=== PATIENT | female | born 1990 | race Two or more races ===

== ENCOUNTER 2022-01-05 21:56 | Emergency (ER) | payer OTHER ==
[~2022-01-05] VITALS: Ht 165.1 cm; Wt 52.0 kg
[2022-01-05 23:25] VITALS: BP 115/81
[2022-01-06 04:04] LABS: Hepatitis B Surface Antibody Positive (Negative)
== END 2022-01-06 05:57 | disposition home or self-care (01) ==
LOC: EEVIPCON 21:56 → ER 21:56
DX: S60.411A Abrasion of left index finger, initial encounter (principal); Z88.0 Allergy status to penicillin; Z88.2 Allergy status to sulfonamides; Z90.49 Acquired absence of other specified parts of digestive tract; W46.0XXA Contact with hypodermic needle, initial encounter; Y93.89 Activity, other specified; Y92.89 Other specified places as the place of occurrence of the external cause; Y99.8 Other external cause status
CPT/HCPCS: 36415; 86703; 86706; 86803; 87340

== ENCOUNTER → 2022-02-03 | Emergency (ER) | payer OTHER ==
[~2022-02-03] VITALS: Ht 157.5 cm; Wt 53.6 kg
[~2022-02-03] MED LIST: AZIT250T9 PO; AZITHROMYCIN 250 MG TAB PO ONE; DexAMETHasone SOD PHOS 10MG/1ML VIAL INJ IM ONE; HYDR-4902 PO; HYDROcodone-ACET 10/325MG TAB PO ONE; OSEL75CA5 PO; OSELTAMIVIR 75 MG CAP PO ONE; PRED20TA2 PO
[2022-02-03 03:22] VITALS: BP 135/89
== END | disposition home or self-care (01) ==
LOC: ER 03:15 → EEVIPCON 03:15
DX: J06.9 Acute upper respiratory infection, unspecified (principal); Z88.0 Allergy status to penicillin; Z88.2 Allergy status to sulfonamides; Z90.49 Acquired absence of other specified parts of digestive tract
CPT/HCPCS: 96372; 99284; J1100

== ENCOUNTER 2022-02-11 23:49 | Emergency (ER) | payer BC, OTHER ==
[~2022-02-11] VITALS: Ht 165.1 cm; Wt 52.0 kg
[~2022-02-11 23:49] MED LIST changes: -AZITHROMYCIN 250 MG TAB PO ONE; -DexAMETHasone SOD PHOS 10MG/1ML VIAL INJ IM ONE; -HYDROcodone-ACET 10/325MG TAB PO ONE; -OSELTAMIVIR 75 MG CAP PO ONE
[2022-02-12] MEDS ORDERED: SODIUM CHLORIDE 0.9% 1,000 ML IV ONE (00:45)
[2022-02-12] MEDS ORDERED: KETOROLAC TROMETH 30 MG/ML 1ML VIAL IV ONE (00:45)
[2022-02-12] MEDS ORDERED: IBUPROFEN 600 MG TAB PO ONE (00:45)
[2022-02-12 02:36] VITALS: BP 103/69
== END 2022-02-12 02:31 | disposition home or self-care (01) ==
LOC: EEVIPCON 23:49 → ER 23:49
DX: U07.1 COVID-19 (principal); M79.10 Myalgia, unspecified site; Z90.49 Acquired absence of other specified parts of digestive tract
CPT/HCPCS: 96361; 96374; 99283; J1885; J7030

== ENCOUNTER 2022-04-06 07:00 | Emergency (ER) | payer BC ==
[~2022-04-06] VITALS: Ht 165.1 cm; Wt 52.2 kg
[2022-04-06] MEDS ORDERED: cefTRIAXone SOD 1,000 MG VL IM ONE (07:15)
[2022-04-06] MEDS ORDERED: HYDROcodone-ACET 5/325MG TAB PO ONE (07:15)
[2022-04-06] MEDS ORDERED: CLIN300C8 PO (07:27)
[2022-04-06] MEDS ORDERED: TRAM-297 PO (07:27)
[2022-04-06 08:11] VITALS: BP 144/91
== END 2022-04-06 07:31 | disposition home or self-care (01) ==
LOC: ER 07:00
DX: K04.7 Periapical abscess without sinus (principal); Z88.0 Allergy status to penicillin; Z88.2 Allergy status to sulfonamides; Z79.899 Other long term (current) drug therapy; Z90.49 Acquired absence of other specified parts of digestive tract
CPT/HCPCS: 96372; 99283; J0696

== ENCOUNTER 2024-03-17 00:17 | Emergency (ER) | payer BC ==
[~2024-03-17] VITALS: Ht 162.6 cm; Wt 50.9 kg
[~2024-03-17 00:17] MED LIST changes: +AZIT-43 PO; -AZIT250T9 PO; +CLIN1CAP70 PO; +TRAM-297 PO
[2024-03-17] MEDS: SODIUM CHLORIDE 0.9% 1,000 ML IV ONE ×3 (00:45→04:45)
[2024-03-17] MEDS: ONDANSETRON HCL 4 MG/2 ML VIAL IV ONE ×3 (00:45→04:45)
[2024-03-17] MEDS: PANTOPRAZOLE 40 MG/10 ML VIAL INJ IV ONE (00:45)
[2024-03-17] MEDS: KETOROLAC TROMETH 30 MG/ML 1ML VIAL IV ONE (00:45)
--- NOTE | 2024-03-17 00:47 | ED.PDOC ---
History of Present Illness HPI Comments 33-year-old female with no PMHx presents with a chief complaint of abdominal discomfort, nausea, vomiting, and diarrhea x onset yesterday around 1600. Patient reports that her abdominal discomfort is localized diffusely, describes as cramping sensation. Patient mentions that she has been having frequent epis odes of vomiting, diarrhea, and nausea. Patient is not actively vomiting at this time. Patient is loja in color. Patient denies any hematemesis, hemoptysis, rectal bleeding, or trauma prior to onset of symptoms. No other symptoms or modifying factors present at this time. Chief Complaint: Nausea/Vomiting Time Seen by MD: 00:22 Primary Care Provider: CHELA Reviewed Notes: Medications, Allergies Allergies: Coded Allergies: Penicillins (Verified Allergy, Unknown, 01/05/22) Sulfa Antibiotics (Verified Allergy, Unknown, 01/05/22) Home Meds Active Scripts Tramadol Hcl (Ultram) 50 Mg Tab, 1 TAB PO TID, #21 TAB Prov:RINA DANIELS 04/06/22 Clindamycin Hcl (Clindamycin Hcl) 300 Mg Cap, 1 CAP PO TID, #30 CAP Prov:RINA DANIELS 04/06/22 Oseltamivir Phosphate (Tamiflu) 75 Mg Cap, 75 MG PO DAILY for 7 Days, #7 CAP Prov:MUNDO MAX MD 02/03/22 Hydrocodone-Acetaminophen (Hydrocodone Bitartrate/AC 5-325 mg) 1 Tab Tab, 1 TAB PO BID for 7 Days, #14 TAB Prov:MUNDO MAX MD 02/03/22 Prednisone (Prednisone) 20 Mg Tab, 20 MG PO TID for 4 Days, #12 MG Prov:MUNDO MAX MD 02/03/22 Azithromycin (Azithromycin) 250 Mg Tab, 250 MG PO DAILY, #6 TAB Prov:MUNDO MAX MD 02/03/22 Information Source: Patient Mode of Arrival: Ambulatory Severity: Moderate Timing: Days Duration: Since onset Prehospital treatment: None Past Medical History PAST MEDICAL HISTORY: Denies Surgical History: Cholecystectomy [employer]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 Family History Family History: Reviewed,noncontributory to illness Social History Smoker: Non-Smoker Alcohol: Denies ETOH Use Drugs: Denies Drug Use Lives In: Home Constitutional: denies: chills, diaphoresis, fatigue, fever, malaise, sweats, weakness, others EENTM: denies: blurred vision, double vision, ear bleeding, ear discharge, ear drainage, ear pain, ear ringing, eye pain, eye redness, hearing loss, mouth pain, mouth swelling, nasal discharge, nose bleeding, nose congestion, nose pain, photophobia, tearing, throat pain, throat swelling, voice changes, others Respiratory: denies: cough, hemoptysis, orthopnea, SOB at rest, shortness of breath, SOB with excertion, stridor, wheezing, others Cardiovascular: denies: chest pain, dizzy spells, diaphoresis, Dyspnea on exertion, edema, irregular heart beat, left arm pain, lightheadedness, palpitations, PND, syncope, others Gastrointestinal: reports: abdominal pain, diarrhea, nausea, vomiting; denies: abdomen distended, blood streaked bowels, constipated, dysphagia, difficulty swallowing, hematemesis, melena, poor appetite, poor fluid intake, rectal bleeding, rectal pain, others Genitourinary: denies: abnormal vagina bleeding, burning, dyspareunia, dysuria, flank pain, frequency, hematuria, incontinence, pain, , vagina discharge, urgency, others Neurological: denies: dizziness, fainting, headache, left sided numbness, left sided weakness, numbness, paresthesia, pre-existing deficit, right sided numbness, right sided weakness, seizure, speech problems, tingling, tremors, weakness, others Musculoskeletal: denies: back pain, gout, joint pain, joint swelling, muscle pain, muscle stiffness, neck pain, others Integumetry: denies: bruises, change in color, change in hair/nails, dryness, laceration, lesions, lumps, rash, wounds, others Allergic/Immunocompromised: denies: Difficulty Healing, Frequent Infections, Hives, Itching, others Hematologic/Lymphatic: denies: anemia, blood clots, easy bleeding, easy bruising, swollen glands, others Endocrine: denies: excessive hunger, excessive sweating, excessive thirst, excessive urination, flushing, intolerance to cold, intolerance to heat, unexplained weight gain, unexplained weight loss, others Psychiatric: denies: anxiety, bipolar disorder, depression, hopeless, panic disorder, schizophrenia, sleepless, suicidal, others All Other Systems: Reviewed and Negative Physical Exam General Appearance: Mild Distress, Thin HEENT: Normal ENT Inspection, Pharynx Normal, TMs Normal Neck: Full Range of Motion, Non-Tender, Normal, Normal Inspection Respiratory: Chest Non-Tender, Lungs Clear, No Accessory Muscle Use, No Respiratory Distress, Normal Breath Sounds Cardiovascular: No Edema, No JVD, No Murmur, No Gallop, Normal Peripheral Pulses, Regular Rate/Rhythm Breast Exam: Deferred Gastrointestinal: No Organomegaly, Non Tender, No Pulsatile Mass, Normal Bowel Sounds, Soft Genitalia: Deferred Pelvic: Deferred Rectal: Deferred Extremities: No calf tenderness, Normal capillary refill, Normal inspection, Normal range of motion, Non-tender, No pedal edema Musculoskeletal : Apperance: Normal Neurologic: Alert, communications senior associate II-XII nml as Tested, No Motor Deficits, Normal Affect, Normal Mood, No Sensory Deficits Cerebellar Function: Normal Reflexes: Normal Skin: Dry, Normal Color, Warm Lymphatic: No Adenopathy Was a procedure done? Was a procedure done?: No Differential Dx Considerations may include: Viral syndrome, gastroenteritis X-Ray, Labs, Meds, VS Vital Signs Date Time Temp Pulse Resp B/P (MAP) Pulse Ox O2 Delivery O2 Flow Rate FiO2 03/17/24 02:55 54 15 111/65 (80) 100 03/17/24 00:55 97.4 57 15 108/66 (80) 100 97.4 03/17/24 00:17 97.4 79 19 121/84 (96) 100 Lab Test 03/17/24 00:38 03/17/24 00:30 Range/Units Influenza Type A Antigen Negative Negative Influenza Type B Antigen Negative Negative SARS-CoV-2 Antigen (Rapid) Negative NEGATIVE White Blood Count 4.4 4.4-10.8 10^3/uL Red Blood Count 3.76 L 4.0-5.20 10^6/uL Hemoglobin 12.1 L 12.2-16.2 g/dL Hematocrit 35.7 L 36.0-46.0 % Mean Corpuscular Volume 95.1 80.0-100.0 fL Mean Corpuscular Hemoglobin 32.3 H 28.0-32.0 pg Mean Corpuscular Hemoglobin Concent 34.0 32.0-36.0 g/dL Red Cell Distribution Width 12.7 11.8-14.3 % Platelet Count 116 L 140-450 10^3/uL Mean Platelet Volume 11.9 H 6.9-10.8 fL Neutrophils (%) (Auto) 48.4 37.0-80.0 % Lymphocytes (%) (Auto) 35.5 10.0-50.0 % Monocytes (%) (Auto) 14.4 H 0.0-12.0 % Eosinophils (%) (Auto) 1.3 0.0-7.0 % Basophils (%) (Auto) 0.4 0.0-2.0 % Neutrophils # (Auto) 2.1 1.6-8.6 10 ^3/uL Lymphocytes # (Auto) 1.5 0.4-5.4 10 ^3/uL Monocytes # (Auto) 0.6 0-1.3 10 ^3/uL Eosinophils # (Auto) 0.1 0-0.8 10 ^3/uL Basophils # (Auto) 0 0-0.2 10 ^3/uL Nucleated Red Blood Cells 0.0 % Platelet Estimate Decreased Large Platelets Few Giant Platelets Few Sodium Level 142 136-145 mmol/L Potassium Level 3.4 L 3.5-5.1 mmol/L Chloride Level 111 H 98-107 mmol/L Carbon Dioxide Level 24 20-31 mmol/L Anion Gap 7 5-15 Blood Urea Nitrogen 7 L 9-23 mg/dL Creatinine 0.54 L 0.550-1.02 mg/dL Glomerular Filtration Rate Calc 123 >90 mL/min BUN/Creatinine Ratio 13.0 10.0-20.0 Serum Glucose 80 74-106 mg/dL Calcium Level 9.1 8.7-10.4 mg/dL Total Bilirubin 1.0 0.2-1.0 mg/dL Aspartate Amino Transferase (AST) 17 13-40 U/L Alanine Aminotransferase (ALT) 24 7-40 U/L Alkaline Phosphatase 41 L 46-116 U/L Total Protein 6.4 5.7-8.2 g/dL Albumin 4.2 3.2-4.8 g/dL Current Medications Medications (Trade) Dose Ordered Sig/Magdalena Route Start Time Stop Time Status Last Admin Sodium Chloride 1,000 ml @ 1,000 mls/hr Q1H ONCE IV 03/17/24 00:30 03/17/24 01:29 DC 03/17/24 00:45 Ondansetron HCl (Zofran) 4 mg ONCE ONCE IV 03/17/24 00:30 03/17/24 00:31 DC 03/17/24 00:45 Ketorolac Tromethamine (Toradol Injection) 15 mg ONCE ONCE IV 03/17/24 00:30 03/17/24 00:31 DC 03/17/24 00:45 Pantoprazole Sodium (Protonix) 40 mg ONCE ONCE IV 03/17/24 00:30 03/17/24 00:31 OK 03/17/24 00:45 Sodium Chloride 1,000 ml @ 1,000 mls/hr Q1H ONCE IV 03/17/24 02:15 03/17/24 03:14 DC 03/17/24 02:20 Famotidine (Pepcid Injection) 20 mg ONCE ONCE IV 03/17/24 03:00 03/17/24 03:01 OK 03/17/24 03:20 Ondansetron HCl (Zofran) 4 mg ONCE ONCE IV 03/17/24 03:00 03/17/24 03:01 OK 03/17/24 03:21 Acetaminophen (Ofirmev) 1,000 mg DAILY STAT IV 03/17/24 02:51 03/17/24 02:52 OK 03/17/24 03:19 Loperamide HCl (Imodium Capsule) 4 mg ONCE ONCE PO 03/17/24 04:00 03/17/24 04:01 OK 03/17/24 04:17 Sodium Chloride 1,000 ml @ 1,000 mls/hr Q1H ONCE IV 03/17/24 04:45 03/17/24 05:44 OK 03/17/24 04:45 Metoclopramide HCl (Reglan Injection) 10 mg ONCE ONCE IV 03/17/24 05:00 03/17/24 05:01 OK 03/17/24 05:21 Time of 1ST Reevaluation: 00:52 Reevaluation 1ST: Unchanged Patient Education/Counseling: Diagnosis, Treatment, Prognosis Family Education/Counseling: No Family Present Departure 1 Departure Time of Disposition: 06:43 (Patient with gastroenteritis presents tolerating p.o.. We will discharge patient with outpatient follow up) Impression: Primary Impression: Acute gastroenteritis Disposition: 01 HOME / SELF CARE / HOMELESS Condition: Stable Additional Instructions: You likely have gastroenteritis. It is important to stay well hydrated and well rested. This usually resolves within 1 week. If your symptoms worsen or you have any other concerns please return to the ER. e-Prescriptions Metoclopramide Hcl (Reglan) 10 Mg Tab 10 MG PO TID PRN for 4 Days, #12 TAB Prov: DIANN JARAMILLO MD 03/17/24 Ondansetron Odt 4MG Tab (ZOFRAN PO) 4 Mg Tb 4 MG PO QID PRN for 5 Days, #20 TAB ODT TAB-DISSOLVE IN MOUTH, THEN SWALLOW Prov: DIANN JARAMILLO MD 03/17/24 Discharged With: Self Critical Care Note Critical Care Time?: No Stability Stability form required: No I personally scribed for DIANN JARAMILLO MD ([email or web address]) on 03/17/24 at 00:47. Electronically submitted by Clovis Hernandez ([email or web address]). DIANN JARAMILLO MD Mar 17, 2024 00:47
[2024-03-17 00:55] VITALS: PULSE 57; RESP 16; TEMP 97.4; O2SAT 100
[2024-03-17 01:12] LABS: Alanine Aminotransferase 24 U/L (7-40); Albumin 4.2 g/dL (3.2-4.8); Anion Gap 7 (5-15); Aspartate Aminotransferase 17 U/L (13-40); Calcium 9.1 mg/dL (8.7-10.4); Carbon Dioxide 24 mmol/L (20-31); Glucose 80 mg/dL (74-106); Sodium 142 mmol/L (136-145)
[2024-03-17 01:13] LABS: Basophils # (auto) 0 10 ^3/uL (0-0.2); Basophils % (auto) 0.4 % (0.0-2.0); Eosinophils # (auto) 0.1 10 ^3/uL (0-0.8); Eosinophils % (auto) 1.3 % (0.0-7.0); Hematocrit 35.7 % (36.0-46.0); Hemoglobin 12.1 g/dL (12.2-16.2); Lymphocytes # (auto) 1.5 10 ^3/uL (0.4-5.4); Lymphocytes % (auto) 35.5 % (10.0-50.0); Mean Corpuscular Hemoglobin 32.3 pg (28.0-32.0); Mean Corpuscular Volume 95.1 fL (80.0-100.0); Monocytes # (auto) 0.6 10 ^3/uL (0-1.3); Monocytes % (auto) 14.4 % (0.0-12.0); Neutrophils # (auto) 2.1 10 ^3/uL (1.6-8.6); Neutrophils % (auto) 48.4 % (37.0-80.0); Platelet Count (auto) 116 10^3/uL (140-450); Red Blood Cells 3.76 10^6/uL (4.0-5.20); Red Cell Distribution Width 12.7 % (11.8-14.3); Total Protein 6.4 g/dL (5.7-8.2); White Blood Cell 4.4 10^3/uL (4.4-10.8)
[2024-03-17 01:14] LABS: COVID19 ANTIGEN SOFIA FIA NEGATIVE (NEGATIVE); Rapid Influenza A Negative (Negative); Rapid Influenza B Negative (Negative)
[2024-03-17 01:15] LABS: Alkaline Phosphatase 41 U/L (46-116); Blood Urea Nitrogen 7 mg/dL (9-23); Chloride 111 mmol/L (98-107); Potassium 3.4 mmol/L (3.5-5.1)
[2024-03-17 01:31] LABS: Giant Platelets Few; Large Platelets FEW; Platelet Estimate Decreased
[2024-03-17] MEDS: ACETAMINOPHEN IV 1000 MG/100ML (10MG/ML) IV STA (03:19)
[2024-03-17] MEDS: FAMOTIDINE (10MG/ML) 2ML VL IV ONE (03:20)
[2024-03-17] MEDS: LOPERAMIDE HCL 2 MG CAP/TAB PO ONE (04:17)
[2024-03-17] MEDS: METOCLOPRAMIDE HCL 5MG/ml INJ 2ml VIAL IV ONE (05:21)
[2024-03-17] MEDS ORDERED: METO-281 PO (06:45)
[2024-03-17] MEDS ORDERED: ZOFR4T PO (06:45)
[2024-03-17 06:50] VITALS: BP 110/70; PULSE 58; RESP 15; O2SAT 100
== END 2024-03-17 07:19 | disposition home or self-care (01) ==
LOC: ER 00:17
DX: K52.9 Noninfective gastroenteritis and colitis, unspecified (principal); Z88.0 Allergy status to penicillin; Z88.2 Allergy status to sulfonamides; Z79.899 Other long term (current) drug therapy; Z90.49 Acquired absence of other specified parts of digestive tract; Z20.822 Contact with and (suspected) exposure to COVID-19
CPT/HCPCS: 36415; 80053; 85025; 87426; 87804; 96361; 96374; 96375; 96376; 99285; J1885; J2405; J2470; J2765; J3490; J7030; J0131

== ENCOUNTER 2024-09-18 21:44 | Emergency (ER) | payer BC ==
[~2024-09-18] VITALS: Ht 165.1 cm; Wt 55.6 kg
[~2024-09-18 21:44] MED LIST changes: +ALPR0.5T PO; +METO-281 PO; +ZOFR4T PO
--- NOTE | 2024-09-18 21:52 | ED.PDOC ---
Musculoskeletal HPI Comments This is a 33 year old female presenting to the ED with chief complaint of right knee pain. Patient reports that she had been playing basketball with her friend yesterday when she accidentally bumped her right knee into their knee. Patient relays that she has continued to have pain since yesterday. Patient denies any numbness, weakness, tingling, fall, or further injury at this time. Vital signs were stable on arrival. Patient is able to ambulate with a limp. Chief Complaint: Lower Extremity Time Seen by MD: 21:50 Primary Care Provider: CHELA Reviewed Notes: Nurses Notes, Medications, Allergies Allergies: Coded Allergies: Penicillins (Verified Allergy, Unknown, 01/05/22) Sulfa Antibiotics (Verified Allergy, Unknown, 01/05/22) Home Meds Active Scripts Alprazolam (Xanax) 0.5 Mg Tb, 1 TAB PO BID PRN, #14 TAB Prov:TONY FRANKS 08/05/24 Metoclopramide Hcl (Reglan) 10 Mg Tab, 10 MG PO TID PRN for 4 Days, #12 TAB Prov:DIANN JARAMILLO MD 03/17/24 Ondansetron Odt 4MG Tab (ZOFRAN PO) 4 Mg Tb, 4 MG PO QID PRN for 5 Days, #20 TAB ODT TAB-DISSOLVE IN MOUTH, THEN SWALLOW Prov:DIANN JARAMILLO MD 03/17/24 Tramadol Hcl (Ultram) 50 Mg Tab, 1 TAB PO TID, #21 TAB Prov:RINA DANIELS 04/06/22 Clindamycin Hcl (Clindamycin Hcl) 300 Mg Cap, 1 CAP PO TID, #30 CAP Prov:RINA DANIELS 04/06/22 Oseltamivir Phosphate (Tamiflu) 75 Mg Cap, 75 MG PO DAILY for 7 Days, #7 CAP Prov:MUNDO MAX MD 02/03/22 Hydrocodone-Acetaminophen (Hydrocodone Bitartrate/AC 5-325 mg) 1 Tab Tab, 1 TAB PO BID for 7 Days, #14 TAB Prov:MUNDO MAX MD 02/03/22 Prednisone (Prednisone) 20 Mg Tab, 20 MG PO TID for 4 Days, #12 MG Prov:MUNDO MAX MD 02/03/22 Azithromycin (Azithromycin) 250 Mg Tab, 250 MG PO DAILY, #6 TAB Prov:MUNDO MAX MD 02/03/22 Information Source: Patient Mode of Arrival: Ambulatory Location: Right Extremity Location: Knee Timing: Hours Prehospital treatment: None Severity: Moderate Able to Move Extremity: Yes Bear Weight: Fully Pain: Moderate Mechanism: Blunt Trauma Circumstances: Sporting, Accident Onset of Symptoms: After Trauma Symptoms: Pain DVT Risk Factors: NONE Past Medical History PAST MEDICAL HISTORY: Denies Surgical History: 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 Family History Family History: Reviewed,noncontributory to illness Social History Smoker: Non-Smoker Alcohol: Denies ETOH Use Drugs: Denies Drug Use Lives In: Home Constitutional: denies: chills, diaphoresis, fatigue, fever, malaise, sweats, weakness, others EENTM: denies: blurred vision, double vision, ear bleeding, ear discharge, ear drainage, ear pain, ear ringing, eye pain, eye redness, hearing loss, mouth pain, mouth swelling, nasal discharge, nose bleeding, nose congestion, nose pain, photophobia, tearing, throat pain, throat swelling, voice changes, others Respiratory: denies: cough, hemoptysis, orthopnea, SOB at rest, shortness of breath, SOB with excertion, stridor, wheezing, others Cardiovascular: denies: chest pain, dizzy spells, diaphoresis, Dyspnea on exertion, edema, irregular heart beat, left arm pain, lightheadedness, palpitations, PND, syncope, others Gastrointestinal: denies: abdomen distended, abdominal pain, blood streaked bowels, constipated, diarrhea, dysphagia, difficulty swallowing, hematemesis, melena, nausea, poor appetite, poor fluid intake, rectal bleeding, rectal pain, vomiting, others Genitourinary: denies: abnormal vagina bleeding, burning, dyspareunia, dysuria, flank pain, frequency, hematuria, incontinence, pain, , vagina discharge, urgency, others Neurological: denies: dizziness, fainting, headache, left sided numbness, left sided weakness, numbness, paresthesia, pre-existing deficit, right sided numb ness, right sided weakness, seizure, speech problems, tingling, tremors, weakness, others Musculoskeletal: reports: others (Rt knee pain); denies: back pain, gout, joint pain, joint swelling, muscle pain, muscle stiffness, neck pain Integumetry: denies: bruises, change in color, change in hair/nails, dryness, laceration, lesions, lumps, rash, wounds, others Allergic/Immunocompromised: denies: Difficulty Healing, Frequent Infections, Hives, Itching, others Hematologic/Lymphatic: denies: anemia, blood clots, easy bleeding, easy bruising, swollen glands, others Endocrine: denies: excessive hunger, excessive sweating, excessive thirst, excessive urination, flushing, intolerance to cold, intolerance to heat, unexplained weight gain, unexplained weight loss, others Psychiatric: denies: anxiety, bipolar disorder, depression, hopeless, panic disorder, schizophrenia, sleepless, suicidal, others All Other Systems: Reviewed and Negative Physical Exam General Appearance: Moderate Distress (Due to right knee pain concerns.), Normal HEENT: Normal ENT Inspection, Pharynx Normal, TMs Normal Neck: Full Range of Motion, Non-Tender, Normal, Normal Inspection Respiratory: Chest Non-Tender, Lungs Clear, No Accessory Muscle Use, No Respiratory Distress, Normal Breath Sounds Cardiovascular: No Edema, No JVD, No Murmur, No Gallop, Normal Peripheral Pulses, Regular Rate/Rhythm Breast Exam: Deferred Gastrointestinal: No Organomegaly, Non Tender, No Pulsatile Mass, Normal Bowel Sounds, Soft Genitalia: Deferred Pelvic: Deferred Rectal: Deferred Extremities: Other (Mild edema noted throughout the anterior knee with exqui site tenderness to palpation over the tibial tuberosity. Significant reduced range of motion. No crepitus appreciated.) Neurologic: Alert, No Motor Deficits, Normal Affect, Normal Mood, No Sensory Deficits Cerebellar Function: Normal Reflexes: Normal Skin: Dry, Normal Color, Warm Lymphatic: No Adenopathy Was a procedure done? Was a procedure done?: No Differential Diagnosis EXT Differential Diagnosis: Sprain, Contusion, Strain X-Ray, Labs, Meds, VS Vital Signs Date Time Temp Pulse Resp B/P (MAP) Pulse Ox O2 Delivery O2 Flow Rate FiO2 09/18/24 21:48 98.3 72 12 127/71 (89) 99 98.3 X-Ray, Labs, Meds, VS Comment Advised patient that it appears she did not fracture her knee but rather, is experiencing neuropathic pain at the patella tendon. Advised patient utilize medication as needed for symptomatic pain relief as well as ice therapy. Time of 1ST Reevaluation: 22:13 Reevaluation 1ST: Improved Consultation: PCP Patient Education/Counseling: Diagnosis, Treatment Family Education/Counseling: Diagnosis, Treatment, No Family Present Sepsis Recent Procedure: No On Antibiotic Therapy: No Respiratory Rate >20: No Heart Rate >90: No Temp<36 C (96.8 F) or >38.3 C: No SBP <90 or MAP <65 mmHG: No New Acute Mental Status Change: No Is the patient on CPAP, BIPAP,: No IV fluid given: No Departure 1 Departure Time of Disposition: 22:13 Impression: Primary Impression: Knee contusion Disposition: HOME / SELF CARE / HOMELESS Condition: Stable Additional Instructions: Advised pain medication as needed for symptomatic relief as well as ice therapy. e-Prescriptions Hydrocodone-Acetaminophen (Hydrocodone Bitartrate/AC 10-325 mg) 1 Tab Tab 1 TAB PO Q8HP PRN, #12 TAB Prov: GERMÁN CHAVIS PAC 09/18/24 Ibuprofen (Ibuprofen) 600 Mg Tab 1 TAB PO Q6HP PRN, #30 TAB Prov: GERMÁN CHAVIS PAC 09/18/24 Discharged With: Self, Friend Critical Care Note Critical Care Time?: No Stability Stability form required: No Heart Score Heart Score: Heart Score Response (Comments) Value History N/A 0 EKG N/A 0 Age N/A 0 Risk Factors N/A 0 Troponin N/A 0 Total 0 I personally scribed for GERMÁN CHAVIS PAC ([email or web address]) on 09/18/24 at 21:52. Electronically submitted by Oswaldo Madrigal ([email or web address]). GERMÁN CHAVIS PAC Sep 18, 2024 21:52
[2024-09-18] MEDS ORDERED: IBUP-1454 PO (22:14)
[2024-09-18] MEDS ORDERED: HYDR-4798 PO (22:14)
[2024-09-18] MEDS ORDERED: HYDROcodone-ACET 10/325MG TAB ONE (22:20)
[2024-09-18] MEDS: HYDROcodone-ACET 10/325MG TAB PO ONE (22:21)
[2024-09-18 22:50] VITALS: BP 120/65; PULSE 70; RESP 16; TEMP 98; O2SAT 97
== END 2024-09-18 23:02 | disposition home or self-care (01) ==
LOC: EEVIPCON 21:44 → ER 21:44
DX: S80.01XA Contusion of right knee, initial encounter (principal); Z90.49 Acquired absence of other specified parts of digestive tract; Z88.2 Allergy status to sulfonamides; Z88.0 Allergy status to penicillin; X58.XXXA Exposure to other specified factors, initial encounter; Y93.67 Activity, basketball; Y92.89 Other specified places as the place of occurrence of the external cause; Y99.8 Other external cause status